=== PATIENT | female | born 1965 | race Caucasian/White ===

== ENCOUNTER 2018-06-14 14:09 | Outpatient (CLI) | payer OTHER | END 2018-06-14 14:19 | disposition home or self-care (01) | LOC: SONOGRAMA 14:09 | DX: S46.312A Strain of muscle, fascia and tendon of triceps, left arm, initial encounter (principal) ==

== ENCOUNTER 2018-06-29 07:18 | Outpatient (CLI) | payer OTHER | END 2018-06-29 07:26 | disposition home or self-care (01) | LOC: SONOGRAMA 07:18 | DX: M75.112 Incomplete rotator cuff tear or rupture of left shoulder, not specified as traumatic (principal) ==

== ENCOUNTER 2020-04-24 16:33 | Emergency (ER) | payer OTHER ==
[~2020-04-24] VITALS: Ht 157.5 cm; Wt 54.0 kg
[2020-04-24] MEDS ORDERED: LISINOPRIL5 MG (16:53)
== END 2020-04-24 20:25 | disposition home or self-care (01) ==
LOC: ER 16:33
DX: M31.6 Other giant cell arteritis (principal)

== ENCOUNTER 2020-07-09 09:28 | Outpatient (CLI) | payer OTHER ==
[~2020-07-09 09:28] MED LIST: LISINOPRIL5 MG
== END 2020-07-09 09:41 | disposition home or self-care (01) ==
LOC: NUCLEAR 09:28
PROVIDERS: ATTEND Internal Medicine Rheumatology
DX: I73.9 Peripheral vascular disease, unspecified (principal)

== ENCOUNTER 2020-11-21 10:19 | Outpatient (CLI) | payer OTHER | END 2020-11-21 10:28 | disposition home or self-care (01) | LOC: MAMO-SONO 10:19 | PROVIDERS: ATTEND Obstetrics & Gynecology Gynecology | DX: N60.02 Solitary cyst of left breast (principal); N60.01 Solitary cyst of right breast; Z34.83 Encounter for supervision of other normal pregnancy, third trimester; N60.11 Diffuse cystic mastopathy of right breast; N60.12 Diffuse cystic mastopathy of left breast ==

== ENCOUNTER 2022-01-01 07:56 | Outpatient (CLI) | payer OTHER | END 2022-01-01 08:15 | disposition home or self-care (01) | LOC: SONOGRAMA 07:56 | PROVIDERS: ATTEND Obstetrics & Gynecology Gynecology | DX: R10.31 Right lower quadrant pain (principal); R10.10 Upper abdominal pain, unspecified; R10.2 Pelvic and perineal pain ==

== ENCOUNTER 2022-02-06 11:17 | Outpatient (CLI) | payer OTHER | END 2022-02-06 11:23 | disposition home or self-care (01) | LOC: RAD 11:17 | PROVIDERS: ATTEND Orthopaedic Surgery | DX: M25.462 Effusion, left knee (principal) ==

== ENCOUNTER 2023-02-07 12:28 | Emergency (ER) | payer OTHER ==
[~2023-02-07] VITALS: Ht 157.5 cm; Wt 50.8 kg
[2023-02-07] MEDS ORDERED: LEVOTHYROXINE25 MCG PO (12:36)
== END 2023-02-07 15:48 | disposition home or self-care (01) ==
LOC: ER 12:28
DX: R42 Dizziness and giddiness (principal); Z88.6 Allergy status to analgesic agent

== ENCOUNTER 2023-12-28 07:56 | Outpatient (CLI) | payer OTHER ==
[~2023-12-28 07:56] MED LIST changes: +LEVOTHYROXINE25 MCG PO
== END 2023-12-28 08:03 | disposition home or self-care (01) ==
LOC: TOM 07:56
PROVIDERS: ATTEND Internal Medicine Gastroenterology
DX: R10.31 Right lower quadrant pain (principal); Z86.010 Personal history of colon polyps

== ENCOUNTER 2025-11-01 08:31 | Outpatient (CLI) | payer OTHER | END 2025-11-01 08:33 | disposition home or self-care (01) | LOC: TOM 08:31 | DX: R10.84 Generalized abdominal pain (principal) ==